=== PATIENT | male | born 1970 | race Hispanic/Latino ===

== ENCOUNTER 2018-04-04 09:41 | Emergency (ER) | payer SELFPAY ==
[2018-04-04] MEDS ORDERED: CEFAZOLIN SODIUM 1 GM VIAL ONE (10:28)
[2018-04-04] MEDS ORDERED: ONDANSETRON HCL 4 MG/2 ML VIAL ONE (10:41)
[2018-04-04] MEDS ORDERED: MORPHINE SULFATE 4 MG/1ML SYG ONE (10:42)
[2018-04-04] MEDS ORDERED: TETANUS/DIPHTHERIA TOXOID [ADULT] 0.5 ML VIAL IM ONE (10:43)
[2018-04-04 11:20] LABS: EOSINOPHILS % (AUTO) 3.6 % (0.0-8.0); HEMATOCRIT 41.4 % (42-54); LYMPHOCYTES % (AUTO) 35.1 % (21.0-51.0); MEAN CORPUSCULAR HEMOGLOBIN 32.8 pg (27.0-33.0); MEAN CORPUSCULAR HGB CONC 36.1 g/dL (32.0-36.0); MEAN CORPUSCULAR VOLUME 91.1 fL (79-99); MONOCYTES % (AUTO) 8.9 % (3.0-13.0); NEUTROPHILS % (AUTO) 51.4 % (40.0-77.0); NUCLEATED RED BLOOD CELLS 0.1 % (0.0-0.19); PLATELET COUNT (AUTO) 106 K/uL (130-400); RED BLOOD CELL COUNT(AUTO) 4.55 MIL/uL (4.50-6.20); RED CELL DISTRIBUTION WIDTH 13.2 % (11.0-15.5); WHITE BLOOD COUNT (AUTO) 8.3 K/uL (4.8-10.8)
[2018-04-04 11:29] LABS: CREATININE 0.8 mg/dL (0.5-1.5); POTASSIUM 4.7 mmol/L (3.5-5.1)
[2018-04-04 11:34] LABS: BILIRUBIN,TOTAL 0.5 mg/dL (0.2-1.0); TOTAL PROTEIN, SERUM 7.1 g/dL (6.0-8.3)
[2018-04-04 11:38] LABS: INR 1.05 (0.85-1.15); PARTIAL THROMBOPLASTIN TIME 22.2 SEC (26.3-35.5)
== END 2018-04-04 12:43 | disposition short-term general hospital (02) ==
LOC: EDH 09:41
DX: S62.623B Displaced fracture of middle phalanx of left middle finger, initial encounter for open fracture (principal); S62.631B Displaced fracture of distal phalanx of left index finger, initial encounter for open fracture; R79.1 Abnormal coagulation profile; Z72.0 Tobacco use; W23.0XXA Caught, crushed, jammed, or pinched between moving objects, initial encounter; Y93.89 Activity, other specified; Y92.69 Other specified industrial and construction area as the place of occurrence of the external cause; Y99.8 Other external cause status
CPT/HCPCS: 36415; 64450; 73130; 80053; 85025; 85610; 85730; 90471; 90714; 96365; 96375; 99285; A4218; J0690; J2270; J2405

== ENCOUNTER 2019-03-28 20:44 | Emergency (ER) | payer SELFPAY ==
[2019-03-28] MEDS ORDERED: AMOXICILLIN/POTASSIUM CLAV 500-125 TABLET PO ONE (21:26)
[2019-03-28] MEDS ORDERED: TETANUS/DIPHTHERIA TOXOID [ADULT] 0.5 ML VIAL IM ONE (21:26)
== END 2019-03-28 21:42 | disposition home or self-care (01) ==
LOC: EDH 20:44
DX: S81.032A Puncture wound without foreign body, left knee, initial encounter (principal); Z72.0 Tobacco use; W54.0XXA Bitten by dog, initial encounter; Y93.89 Activity, other specified; Y92.488 Other paved roadways as the place of occurrence of the external cause; Y99.8 Other external cause status
CPT/HCPCS: 90471; 90714